=== PATIENT | female | born 1995 | race Caucasian/White ===

== ENCOUNTER → 2020-05-03 16:09 | Outpatient (CLI) | payer OTHER, SELFPAY ==
[2020-05-03] MEDS: COVID-19 VACC, Ad26(JANSSEN)/PF 0.5 ML IM (16:19)
== END ==
PROVIDERS: Visit Provider Internal Medicine
DX: Z23 Encounter for immunization (principal)
CPT/HCPCS: 0031A; 91303

== ENCOUNTER 2023-06-04 20:21 | Emergency (ER) | payer OTHER, SELFPAY ==
[2023-06-04 20:35] VITALS: BP 104/67; PULSE 91; RESP 20; TEMP 36.7; O2SAT 99; BMI 29.2
--- NOTE | 2023-06-04 21:23 | DI.RAD.S_ITS ---
PROCEDURE: XR ANKLE LT MIN 3V INDICATIONS: Possible Achilles injury eval for bony injury TECHNIQUE: 3 views of the ankle were acquired. COMPARISON: None. FINDINGS: Bones: No fractures or dislocations. Ankle mortise is normally aligned. No suspicious bony lesions. Soft tissues: No tibiotalar joint effusion. Achilles tendon appears thickened. IMPRESSION: 1. No acute bony abnormality or significant effusion. 2. Achilles tendon appears thickened. Consider MRI for further evaluation. Dictated by: Akhil Purcell M.D. on 06/04/2023 at 22:45 Approved by: Akhil Purcell M.D. on 06/04/2023 at 22:46
--- NOTE | 2023-06-04 21:23 | ED.LOWEXIN ---
HPI - Extremity Injury (Lower) General Chief Complaint: Extremity Injury, Lower Stated Complaint: possible torn meniscus Time Seen by Provider: 06/04/23 21:19 Source: patient and family Mode of arrival: Wheelchair History of Present Illness HPI Narrative: 27-year-old female here for evaluation of a left ankle injury. Despite the stated complaint of a possible torn meniscus the concern is actually for a torn Achilles tendon. She states she was playing basketball when she had a sudden discomfort with her left heel. Has had problems ambulating since then. Has problems flexing and extending at the ankle. No other injuries from the event. Related Data Previous Rx's Medication Instructions Recorded hydrocodone 5 mg-acetaminophen 325 1 tab PO Q8H PRN pain #14 tabs 06/04/23 mg tablet Allergies Allergy/AdvReac Type Severity Reaction Status Date / Time No Known Drug Allergies Allergy Verified 06/04/23 23:10 Review of Systems Musculoskeletal Musculoskeletal: Reports system reviewed and no additional complaints, except as documented Integumentary/Breasts Skin/Breast: Reports system reviewed and no additional complaints, except as documented Neurologic Neurologic: Reports system reviewed and no additional complaints, except as documented Patient History Social History Smoking Status: Never smoker Smoking Status: Never smoker alcohol intake frequency: a few times a week Substance Use Type: does not use Exam Initial Vital Signs Initial Vital Signs: Vital Signs Temperature 98.1 F 06/04/23 20:35 Pulse Rate 91 H 06/04/23 20:35 Respiratory Rate 20 06/04/23 20:35 Blood Pressure 104/67 06/04/23 20:35 Pulse Oximetry 99 06/04/23 20:35 Oxygen Delivery Method Room Air 06/04/23 20:35 Const General: cooperative and comfortable Skin General: no rashes or lesions noted Neuro Sensory Exam: no sensory deficits noted Extrem Other: Patient has discomfort with squeezing of the calf muscle on the left. There does appear to be a deficit of the Achilles tendon on the left. Her mediolateral malleolus or unremarkable. Her foot is unremarkable. Patient has difficulty flexing and extending her ankle. Procedures Orthopedic Splinting/Casting Injury #1: Side: left Lower Extremity Injury Location: ankle Lower Extremity Immobilizer: posterior splint Post splinting neuro exam: no change Post splinting vascular exam: no change Placed by: Nursing Course Orders Ordered: ED Orders 06/04/23 21:23 XR ankle LT min 3V Stat Discontinued Medications Hydrocodone Bitart/Acetaminophen (Hydrocodone/Acet 5/325 Prepack) 1 bottle MISC DIRECTED ONE Stop: 06/04/23 22:56 Last Admin: 06/04/23 23:14 Dose: 1 bottle Documented By: AMIRA Vital Signs Vital signs: Vital Signs - 8 hr 06/04/23 20:35 06/04/23 23:42 Temperature 98.1 F 98 F Pulse Rate 91 H 86 Respiratory Rate 20 18 Blood Pressure 104/67 134/78 Pulse Oximetry 99 98 Oxygen Delivery Method Room Air Room Air [facility] - Extremity Injury (Lower) Imaging Data Extremity x-ray #1: Radiologist's Impression: PROCEDURE: XR ANKLE LT MIN 3V INDICATIONS: Possible Achilles injury eval for bony injury TECHNIQUE: 3 views of the ankle were acquired. COMPARISON: None. FINDINGS: Bones: No fractures or dislocations. Ankle mortise is normally aligned. No suspicious bony lesions. Soft tissues: No tibiotalar joint effusion. Achilles tendon appears thickened. IMPRESSION: 1. No acute bony abnormality or significant effusion. 2. Achilles tendon appears thickened. Consider MRI for further evaluation. [facility] Narrative Medical decision making narrative: X-ray show no bony abnormality however her physical exam is consistent with a disruption of the Achilles tendon. Could potentially be completely torn or a partial tear. She was placed in a posterior splint and crutches. Pain medication for comfort. She was given care instructions and return precautions and information for follow-up with orthopedics. She expressed understanding and agreement with plan. Discharge Plan Departure Patient Disposition: Home Clinical Impression: Achilles tendon injury Instructions: How to Use Crutches, Achilles Tendon Rupture, How to Take Care of Your Splint Activity Restrictions/Additional Instructions: The splint that was placed today does need to stay on and stay clean and stay dry. You need to treat it like a cast. Use the crutches. I recommend that if you are taking the pain medication that you use the frozen breast milk that you have saved. You can also take Tylenol/ibuprofen. Contact the orthopedic doctors with the number provided below for follow-up. Return to the emergency department for new or worsening symptoms. Prescriptions: New hydrocodone-acetaminophen 5-325 mg tablet 1 tab PO Q8H PRN (Reason: pain) Qty: 14 0RF Referrals: Fatemeh Arroyo MD [Physician] - María White DNP, [employer] [Primary Care Provider] - Stand Alone Forms: Patient Portal/API
[2023-06-04] MEDS: HYDROCODONE/ACET 5/325 PREPACK 1 BOTTLE MISC (23:14)
[2023-06-04 23:42] VITALS: BP 134/78; PULSE 86; RESP 18; TEMP 36.6; O2SAT 98
== END 2023-06-04 23:43 | disposition home or self-care (01) ==
PROVIDERS: Emergency Provider Emergency Medicine; PCP Nurse Practitioner Family
DX: S86.009A Unspecified injury of unspecified Achilles tendon, initial encounter (principal); Y93.67 Activity, basketball
CPT/HCPCS: 73610; 99281; 99283